=== PATIENT | male | born 1965 | race Caucasian/White ===

== ENCOUNTER 2019-01-07 15:44 | Emergency (ER) | payer OTHER, SELFPAY ==
[2019-01-07 16:07] VITALS: BP 135/85; PULSE 70; RESP 15; TEMP 36.8; O2SAT 97; BMI 27.3
[2019-01-07] MEDS: TET,DIPH,PERTUSS(ACELL),VAC/PF 0.5 ML SYRINGE IM (18:31)
--- NOTE | 2019-01-07 19:16 | ED_ITS ---
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 He states full range of motion. He does not know when his last tetanus was. He states that he was able to stop the bleeding by holding pressure but that he was not able to adequately evaluate the cut. He states that his jukebox coin collector was not clean. He is right-hand dominant. Related Data Home Medications Medication Instructions Recorded Confirmed No Known Home Medications 05/05/18 05/05/18 Allergies Allergy/AdvReac Type Severity Reaction Status Date / Time Penicillins [PENICILLINS] Allergy Unknown Verified 05/05/18 16:51 Review of Systems <NETTIE Sellers - Last Filed: 01/07/19 22:20> Review of Systems GENERAL: Denies chills, fatigue, malaise, fever, sweats. HEENT: Denies sinus pain, ear pain, sore throat, difficulty swallowing, dizziness. RESPIRATORY: Denies dyspnea, cough, wheezing, hemoptysis, sputum. CARDIOVASCULAR: Denies chest pain, palpitations, orthopnea, edema, GASTROINTESTINAL: Denies nausea, vomiting, abdominal pain, diarrhea, constipation, melena. : Denies dysuria, frequency, incontinence, hematuria, urinary retention. MUSCULOSKELETAL: denies weakness, joint pain, or bony pain SKIN: See HPI NEUROLOGIC: Denies weakness, headache, numbness, change in speech, confusion, seizures, incoordination. PSYCHIATRIC: No concerning psychosocial issues. 12 point review of systems is negative except for those stated above PFSH <NETTIE Sellers - Last Filed: 01/07/19 22:20> Family History (Updated 02/18/17 @ 00:00 by Conversion Provider) Father Age: 76 Diabetes mellitus Social History Smoking Status: Never smoker alcohol intake: current Family History (Updated 02/18/17 @ 00:00 by Conversion Provider) Father Age: 76 Diabetes mellitus Social History Smoking Status: Never smoker alcohol intake: current Exam <NETTIE Sellers - Last Filed: 01/07/19 22:20> Narrative Exam Narrative: GENERAL: This is a well-nourished, well-developed patient, a ppears anxious HEAD: Atraumatic. Normocephalic. No temporal or scalp tenderness. EYES: Pupils equal round and reactive. Extraocular motions intact. No scleral icterus. No injection or drainage. ENT: Nose without bleeding, purulent drainage or septal hematoma. Throat without erythema, tonsillar hypertrophy or exudate. Uvula midline. Airway patent. NECK: Trachea midline. No JVD or lymphadenopathy. Supple, nontender, no meningeal signs. CARDIOVASCULAR: Regular rate and rhythm GASTROINTESTINAL: Abdomen soft, non-tender, nondistended. No hepato- splenomegaly, or palpable masses. No guarding. EXTREMITIES: No clubbing, cyanosis, or edema. No joint tenderness, effusion, or edema noted. BACK: Nontender without deformity or crepitance. No flank tenderness. NEURO: AOx3. Sensation intact left thumb. SKIN: 1.25 cm laceration distal aspect of left thumb. Through dermis. Linear. No obvious foreign body. No tendon involvement visible. Initial Vital Signs Initial Vital Signs: Vital Signs Temperature 98.3 F 01/07/19 16:07 Pulse Rate 70 01/07/19 16:07 Respiratory Rate 15 01/07/19 16:07 Blood Pressure 135/85 01/07/19 16:07 Pulse Oximetry 97 01/07/19 16:07 <Morteza Santana DO - Last Filed: 01/08/19 05:40> Initial Vital Signs Initial Vital Signs: Vital Signs Temperature 98.3 F 01/07/19 16:07 Pulse Rate 70 01/07/19 16:07 Respiratory Rate 15 01/07/19 16:07 Blood Pressure 135/85 01/07/19 16:07 Pulse Oximetry 97 01/07/19 16:07 Procedures <NETTIE Sellers - Last Filed: 01/07/19 22:20> Laceration Repair Laceration 1: Site: hand Side (If applicable): right Size (cm): 1.25 Description: linear Depth: simple, single layer Pre-repair: wound explored and irrigated extensively (hibiclense) Skin layer closed with: steri-strips (x 1 ) Course <KATHRYN Sellers-BC - Last Filed: 01/07/19 22:20> Orders Ordered: Discontinued Medications Diphtheria/Tetanus/Acell Pertussis (Adacel) 0.5 ml IM .ONCE ONE Stop: 01/07/19 18:07 Last Admin: 01/07/19 18:31 Dose: 0.5 ml Vital Signs - 8 hr 01/07/19 16:07 Temperature 98.3 F Pulse Rate 70 Respiratory Rate 15 Blood Pressure 135/85 Pulse Oximetry 97 <Morteza Santana DO - Last Filed: 01/08/19 05:40> Orders Ordered: Discontinued Medications Diphtheria/Tetanus/Acell Pertussis (Adacel) 0.5 ml IM .ONCE ONE Stop: 01/07/19 18:07 Last Admin: 01/07/19 18:31 Dose: 0.5 ml Vital Signs - 8 hr 01/07/19 16:07 Temperature 98.3 F Pulse Rate 70 Respiratory Rate 15 Blood Pressure 135/85 Pulse Oximetry 97 MDM - Extremity Injury (Lower) <NETTIE Sellers - Last Filed: 01/07/19 22:20> MDM Narrative Medical decision making narrative: The patient is a 53-year-old male who presents with chief complaint of laceration to his left thumb. I discussed the possibility of suture closure, but the patient elected to use a Steri-Strips as I stated he would have a stitch or 2. It was cleansed extensively. His tetanus was updated. I discussed at length monitoring for signs and symptoms of infection including pus, drainage or fever. Patient has full range of motion even with resistance at this point time. Discussed return precautions. Patient questions or concerns upon discharge. Discharge Plan Departure Patient Disposition: Home Clinical Impression: Laceration Discharge Date/Time: 01/07/19 19:33 Interventions: ED Discharge Assessment Last Done: 01/07/19 19:33 Instructions: DI for Laceration Repair Steri-Strips Activity Restrictions/Additional Instructions: Please keep your cut clean and dry. Do not submerge it dirty water such as bath water, guerrero water or hot tubs. Please monitor for signs and symptoms of infection including redness, pus and fever or swelling. Please be evaluated if any of these occur. Come back to the emergency department for any acute concerns. Prescriptions: No Action No Known Home Medications RF: 0 <Morteza Santana DO - Last Filed: 01/08/19 05:40> Cosign ED Attending [place] Attestation: I was immediately available in the department for consultation. Documentation has been reviewed. I agree with assessment and plan.
== END 2019-01-07 19:33 | disposition home or self-care (01) ==
PROVIDERS: Emergency Provider Nurse Practitioner Family
DX: S61.012A Laceration without foreign body of left thumb without damage to nail, initial encounter (principal); Z23 Encounter for immunization
CPT/HCPCS: 90471; 99283; 90715